=== PATIENT | male | born 1990 | race Caucasian/White ===

== ENCOUNTER 2017-09-25 07:12 | Day surgery (SDC) | payer BC ==
[2017-09-12 13:29] VITALS: BMI 22.0
[~2017-09-25] VITALS: Ht 172.7 cm; Wt 67.3 kg
[~2017-09-25 07:12] MED LIST: CEFAZOLIN 1000MG IV PUSH 5 ML IV SCH; LACTATED RINGER'S 1000ML 1,000 ML IV SCH
[2017-09-25] MEDS ORDERED: NEOSTIGMINE METHYLSULFATE 5 MG/5 ML SYR ONE (07:43)
[2017-09-25] MEDS ORDERED: PROPOFOL IV EMULSION 10 MG/ML 20 ML VIAL IV ONE (07:43)
[2017-09-25] MEDS ORDERED: LIDOCAINE HCL 2% 2 ML VIAL (20MG/ML) ONE (07:43)
[2017-09-25] MEDS ORDERED: ONDANSETRON INJ 2 MG/ML 2 ML VIAL ONE (07:43)
[2017-09-25] MEDS ORDERED: GLYCOPYRROLATE INJ 0.2 MG/ML VIAL ONE (07:43)
[2017-09-25 07:44] VITALS: BP 127/70; PULSE 61; TEMP 36.4; O2SAT 100; Ht 172.7 cm; Wt 67.3 kg
[2017-09-25] MEDS ORDERED: FENTANYL CITRATE INJ 50 MCG/1 ML 2 ML VIAL ONE ×2 (07:44→09:02)
[2017-09-25] MEDS ORDERED: MIDAZOLAM HCL 1 MG/ML 2ML VIAL ONE (07:44)
[2017-09-25] MEDS ORDERED: ACETAMINOPHEN 1000 MG/100 ML IV IV ONE (07:48)
--- NOTE | 2017-09-25 08:11 | History & Physical Bridge Note ---
H&P Re-Evaluation Bridge Note: I have examined the patient, reviewed the History & Physical and in the interval since the performance of the History & Physical I have noted the following changes of clinical significance: No changes noted
[2017-09-25] MEDS ORDERED: ONDANSETRON INJ 2 MG/ML 2 ML VIAL IV PRN (08:15)
[2017-09-25] MEDS ORDERED: FENTANYL CITRATE INJ 50 MCG/1 ML 2 ML VIAL IV PRN (08:15)
[2017-09-25] MEDS ORDERED: HYDROmorphone INJ 1 MG/ML SYR IV PRN (08:15)
[2017-09-25] MEDS ORDERED: ATROPINE SULFATE 0.1 MG/ML 5ML SYR IV PRN (08:15)
[2017-09-25] MEDS ORDERED: EpHEDrine SULFATE INJ 50 MG/ML AMP IV PRN (08:15)
[2017-09-25] MEDS ORDERED: BACITRACIN OINT 15 GM TUBE ONE (08:44)
--- NOTE | 2017-09-25 09:06 | Discharge Instructions ---
Discharge Instructions Date of Service Sep 25, 2017. Visit Reason for Visit: Short Prenulum Of Penis Discharge Discharge Diagnosis / Problem: status post frenulectomy Discharge Goals Goal(s): Increase independence, Improve disease control Activity Recommendations Activity Limitations: per Instructions/Follow-up section (light activity and no shower for next 48 hours, bacitracin on wound ,hold pressure for bleeding) Anesthesia . Post Anesthesia Instructions: If you have had General Anesthesia or IV Sedation: * Do not drive today. * Resume driving when surgeon permits. * Do not make important decisions or sign legal documents today. * Call surgeon for: 1. Temperature elevations greater than 101 degrees F. 2. Uncontrollable pain. 3. Excessive bleeding. 4. Persistent nausea and vomiting. 5. Medication intolerance (nausea, vomiting or rash). * For nausea and vomiting use only clear liquids such as: tea, soda, bouillon until nausea subsides, then gradually increase diet as tolerated. * If you have any concerns or questions, call your surgeon's office. If physician is unavailable and it is an emergency, call 911 or go to the nearest emergency room. . Diet Recommendations Recommended Home Diet: resume previous diet Procedures Procedures Performed: Frenulectomy of Penis Pending Studies Studies pending at discharge: no Medical Emergencies . Who to Call and When: Medical Emergencies: If at any time you feel your situation is an emergency, please call 911 immediately. . Non-Emergent Contact Non-Emergency issues call your: Urologist Call Non-Emergent contact if: wound has increased drainage (hold direct pressure with whole hand for bleeding keep ointment on wound) . . "Provider Documentation" section prepared by Sandip Adame. .
--- NOTE | 2017-09-25 09:07 | [facility] Post Operative Brief Note ---
Immediate Operative Summary Operative Date Sep 25, 2017. Pre-Operative Diagnosis Frenulum that is restrictive Post-Operative Diagnosis Frenulum that is restrictive Procedure(s) Performed Frenulectomy of Penis Surgeon Dr. Adame Board Certified Music Therapist Surgeon(s) NONE Estimated Blood Loss 20 ML Findings bleeding from incision Specimens None per surgeon Complication(s) None Disposition Recovery Room / PACU
--- NOTE | 2017-09-25 09:51 | Anesthesiology Progress Note ---
Anesthesia Post Op Note Date & Time Sep 25, 2017 at 09:51 Vital Signs Pain Intensity: 2 Vital Signs Past 12 Hours Date Time Temp Pulse Resp B/P (MAP) Pulse Ox O2 Delivery O2 Flow Rate FiO2 09/25/17 09:40 57 15 109/63 99 Room Air 09/25/17 09:30 56 14 118/68 100 Oxymask 10 09/25/17 09:20 63 16 113/69 100 Oxymask 10 09/25/17 09:12 36.2 80 12 120/71 100 Oxymask 10 09/25/17 07:44 36.4 61 18 127/70 (89) 100 Room Air Notes Mental Status: alert / awake / arousable, participated in evaluation Pt Amnestic to Procedure: Yes Nausea / Vomiting: adequately controlled Pain: adequately controlled Airway Patency, RR, SpO2: stable & adequate BP & HR: stable & adequate Hydration State: stable & adequate Anesthetic Complications: no major complications apparent
[2017-09-25 09:57] VITALS: BP 124/71; PULSE 52; TEMP 36.6; O2SAT 99
[2017-09-25 10:27] VITALS: BP 122/82; PULSE 68; TEMP 36.8; O2SAT 100
--- NOTE | 2017-09-25 12:38 | OPERATIVE REPORT ---
DATE OF OPERATION: 09/25/2017 PROCEDURE PERFORMED: Repair of frenulum or frenulectomy. PREOPERATIVE DIAGNOSIS: Restrictive frenulum. POSTOPERATIVE DIAGNOSIS: Same. INDICATIONS: The patient is a 26-year-old male who presented with a history initially of ED, but this resolved with some counseling. He had a new partner and he was having problems with pain because of restriction from the frenulum. Discussed doing the surgery in the hospital here because of his age and because of concerns that it would bleed relatively briskly. We decided to do it in the hospital. DESCRIPTION OF THE PROCEDURE: The patient was taken to the OR. He was given preoperative Keflex, had Venodyne stockings placed, was given general anesthesia. He was placed in the supine position. He was prepped and draped in the usual sterile fashion. An incision was made in the mid frenulum freeing it up so that it was no longer restricting or pulling on the glans. However, it subsequently bled blood. The sutures were placed horizontally lengthening and closing the area of bleeding, but lengthening the areas of the frenulum, it would no longer be restricted. Interrupted 4-0 and 5-0 chromic sutures were placed so that at the end of the procedure, there was no significant bleeding. The patient had approximately 20 mL of bleeding from this. At the end of the procedure, I placed a copious amount of bacitracin ointment and a gauze on the area and reduced the foreskin as the patient did not wish to be circumcised and then covered up with a loose gauze the entire penis without putting any tape or restriction on it and instructed them to remove this when the patient left. The patient was instructed to keep bacitracin ointment on this area for the next several days, not to shower and he is going to return in followup. I attest to the content of the Intraoperative Record and any orders documented therein. Any exception s are noted below.
== END 2017-09-25 11:06 | disposition home or self-care (01) ==
LOC: C.ACU 07:12
PROVIDERS: ATTEND Urology
DX: Q55.69 Other congenital malformation of penis (principal); N52.9 Male erectile dysfunction, unspecified; R25.1 Tremor, unspecified; M54.5 Low back pain; G89.29 Other chronic pain; Z82.49 Family history of ischemic heart disease and other diseases of the circulatory system; Z83.3 Family history of diabetes mellitus